=== PATIENT | female | born 2000 | race Caucasian/White ===

== ENCOUNTER 2021-05-14 14:42 | Emergency (ER) | payer SELFPAY ==
[~2021-05-14] VITALS: Ht 165 cm; Wt 68.0 kg
[2021-05-14 14:49] VITALS: BP 135/98
--- NOTE | 2021-05-14 15:19 | ED General ---
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 Source of Information: Patient Exam Limitations: No Limitations History of Present Illness Date Seen by Provider: May 14, 2021 Time Seen by Provider: 15:00 Initial Comments Patient is a 21-year-old female who presents to the emergency room today with a chief complaint of left anterior chest wall discomfort left upper arm and elbow discomfort, left posterior scapular discomfort. Patient states that she "pulled a muscle" about 2 months ago and treated it conservatively. She states it got a little bit better than over the course of the last several days that she has been moving furniture she has had a recurrence of symptoms. Patient has not been taking any medications for the pain. No anti-inflammatories or Tylenol. She denies using ice or warm compresses. Patient states when she moves her left upper arm or pushes or pulls she has extreme discomfort in her chest wall just underneath her left breast. Also in her left shoulder. She describes little numbness without tingling in her left arm. No weakness or loss of function. No rashes or fevers. No significant past medical history. All other review of systems reviewed and negative except as stated. Timing/Duration: 2-3 Days Severity: Moderate Allergies and Home Medications Patient Home Medication List Home Medication List Reviewed: Yes Review of Systems Review of Systems Constitutional: see HPI EENTM: no symptoms reported Respiratory: no symptoms reported Cardiovascular: no symptoms reported Gastrointestinal: no symptoms reported Musculoskeletal: joint pain (Left elbow), muscle pain, muscle cramps Skin: no symptoms reported All Other Systems Reviewed Negative Unless Noted: Yes Past Qjaknaj-Itfmyp-Nfuabs Hx Patient Social History Tobacco Use?: No Substance use?: No Pt feels they are or have been: No Physical Exam Vital Signs Vital Signs - First Documented 05/14/21 14:49 Temp 36.2 Pulse 100 Resp 18 B/P (MAP) 135/98 (110) Pulse Ox 99 Capillary Refill : Less Than 3 Seconds Height, Weight, BMI Height: '" Weight: lbs. oz. kg; 24.00 BMI Method: General Appearance: No Apparent Distress, WD/WN Neck: Normal Inspection Respiratory: No Accessory Muscle Use, No Respiratory Distress Cardiovascular: Normal Peripheral Pulses Extremity: Normal Capillary Refill, Normal Inspection, Normal Range of Motion, Non Tender, Other (Patient has a little tenderness to palpation distal left upper arm volar aspect, no rashes. Tenderness medial left scapula.) Neurologic/Psychiatric: Alert, Oriented x3, No Motor/Sensory Deficits, Normal Mood/Affect, ice sculptor II-XII Norm as Tested, Other (Good strength 5/5 in all muscle groups of the left upper extremity also normal sensation) Skin: Normal Color, Warm/Dry Progress/Results/Core Measures Suspected Sepsis SIRS Temperature: Pulse: 100 Respiratory Rate: 18 Blood Pressure 135 /98 Mean: 110 Results/Orders Vital Signs/I&O 05/14/21 14:49 Temp 36.2 Pulse 100 Resp 18 B/P (MAP) 135/98 (110) Pulse Ox 99 Capillary Refill : Less Than 3 Seconds Blood Pressure Mean: 110 Progress Note : Time: 15:28 Progress Note Patient encouraged to use anti-inflammatories as well as alternate ice and heat patches to the affected areas. She is given good return precautions including if she gets persistent numbness or weakness to the left arm she needs to come back to the emergency room for reevaluation. Patient is comfortable with this plan of care. All questions were sought and answered. Patient is stable for discharge. Departure Impression Primary Impression: Musculoskeletal pain of extremity Disposition: 01 HOME, SELF-CARE Condition: Stable Departure-Patient Inst. Decision time for Depature: 15:17 Referrals: [facility] [place],LOCAL PHYSICIAN (PCP) Primary Care Physician Patient Instructions: Muscle and Bone Pain (DC) Add. Discharge Instructions: Take [id number]-[id number] Aleve, 1 to 2 tablets twice daily for 3 to 5 days. This will help with pain and inflammation. Always take Aleve with food. You can apply ice packs to the sore areas which may also relieve discomfort. Gentle stretching will also help sore muscles. You can also buy cobr-lil-nlkrwft lidocaine patches which will help relieve muscle pain as well. Bppm-mmj-enceldj muscle rubs might be helpful as well. Return to the emergency room for any weakness to your left arm, loss of function, rashes or any other emergent concerning symptoms. LAUREN DAVIES MD May 14, 2021 15:19
== END 2021-05-14 15:22 | disposition home or self-care (01) ==
LOC: ER 14:44
DX: M79.602 Pain in left arm (principal)
CPT/HCPCS: 99281

== ENCOUNTER 2021-06-11 13:56 | Emergency (ER) | payer SELFPAY ==
[~2021-06-11] VITALS: Ht 160 cm; Wt 68.0 kg
[2021-06-11 14:06] VITALS: BP 134/84
[2021-06-11] MEDS ORDERED: IBUPROFEN 600 MG (MOTRIN) TAB PO ONE (14:30)
--- NOTE | 2021-06-11 14:33 | ED Headache ---
General Chief Complaint: Head/Cervical Problems Stated Complaint: MIGRAINE Nursing Triage Note: PT AMB TO TRIAGE WITH COMPLAINT OF HEADACHE FOR A WEEK. STATES HAS HAD EAR PAIN AND BLURRY VISION. STATES TYLENOL HAS NOT HELPED. Source: patient Exam Limitations: no limitations History of Present Illness Date Seen by Provider: Jun 11, 2021 Time Seen by Provider: 14:16 Initial Comments This is a well-appearing 21-year-old female who presented to the ER with complaints of headache behind her left eye and left side of her head. States that she has had a headache for approximately 1 week about the time she had. New since been her scentsy pot. States that yesterday was the only day she did not have a headache and she had turned the scentsy pot off. States that it was turned back on yesterday and she again has a headache. Allergies and Home Medications Allergies Coded Allergies: nitrofurantoin (Verified Allergy, Unknown, 06/11/21) Past Fyelfak-Rewnwn-Wdgbho Hx Patient Social History Tobacco Use?: No Use of E-Cig and/or Vaping dev: No Substance use?: No Alcohol Use?: No Pt feels they are or have been: No Physical Exam Vital Signs Vital Signs - First Documented 06/11/21 14:06 Temp 36.9 Pulse 87 Resp 19 B/P (MAP) 134/84 (101) Pulse Ox 98 O2 Delivery Room Air Capillary Refill : Less Than 3 Seconds Height, Weight, BMI Height: '" Weight: lbs. oz. kg; 26.00 BMI Method: Progress/Results/Core Measures Results/Orders My Orders Orders - RAMSEY LOPEZ APRN Ibuprofen Tablet (Motrin Tablet) (06/11/21 14:30) Vital Signs/I&O 06/11/21 14:06 Temp 36.9 Pulse 87 Resp 19 B/P (MAP) 134/84 (101) Pulse Ox 98 O2 Delivery Room Air Blood Pressure Mean: 101 Departure Impression Primary Impression: Migraine Disposition: 01 HOME, SELF-CARE Condition: Stable Departure-Patient Inst. Decision time for Depature: 14:32 Referrals: NO,LOCAL PHYSICIAN (PCP/Family) Primary Care Physician Patient Instructions: Migraines (DC) Add. Discharge Instructions: Plan: 1. Avoid using scentsy pot to see if this is causing your migraines. 2. May take Tylenol or Ibuprofen as needed for pain per package. 3. If symptoms persist follow up with your primary care provider. 4. Return for any new, concerning, or worsening symptoms. All discharge instructions reviewed with patient and/or family. Voiced understanding. RAMSEY LOPEZ [employer] Jun 11, 2021 14:33
== END 2021-06-11 14:52 | disposition home or self-care (01) ==
LOC: EDUNIT# 13:56 → ER 13:59
DX: G43.909 Migraine, unspecified, not intractable, without status migrainosus (principal)
CPT/HCPCS: 99283

== ENCOUNTER 2021-08-03 23:22 | Emergency (ER) | payer MEDICAID ==
[2021-08-03 23:45] LABS: BASOPHILS # (AUTO) 0.1 10^3/uL (0.0-0.1); BASOPHILS % (AUTO) 0 % (0-10); EOSINOPHILS # (AUTO) 0.1 10^3/uL (0.0-0.3); EOSINOPHILS % (AUTO) 1 % (0-10); HEMATOCRIT 40 % (35-52); HEMOGLOBIN 13.6 g/dL (11.5-16.0); LYMPHOCYTES # (AUTO) 3.6 10^3/uL (1.0-4.0); LYMPHOCYTES % (AUTO) 31 % (12-44); MEAN CORPUSCULAR HEMOGLOBIN 30 pg (25-34); MEAN CORPUSCULAR HGB CONC 34 g/dL (32-36); MEAN CORPUSCULAR VOLUME 88 fL (80-99); MEAN PLATELET VOLUME 11.1 fL (9.0-12.2); MONOCYTES # (AUTO) 0.7 10^3/uL (0.0-1.0); MONOCYTES % (AUTO) 6 % (0-12); NEUTROPHILS % (AUTO) 61 % (42-75); PLATELET COUNT 278 10^3/uL (130-400); WHITE BLOOD COUNT 11.3 10^3/uL (4.3-11.0)
[2021-08-03] MEDS ORDERED: KETOROLAC 30 MG/ML VIAL IVP ONE (23:45)
[2021-08-03 23:47] LABS: BILIRUBIN,URINE NEGATIVE (NEGATIVE); CLARITY,URINE CLEAR; COLOR,URINE YELLOW; GLUCOSE, URINE (UA) NEGATIVE (NEGATIVE); KETONES,URINE NEGATIVE (NEGATIVE); LEUKOCYTE ESTERASE ,URINE NEGATIVE (NEGATIVE); NITRITE,URINE NEGATIVE (NEGATIVE); PROTEIN,URINE 2+ (NEGATIVE)
--- NOTE | 2021-08-03 23:47 | ED Chest Pain ---
General Stated Complaint: CP Source: patient Exam Limitations: no limitations History of Present Illness Date Seen by Provider: Aug 03, 2021 Time Seen by Provider: 23:32 Initial Comments Patient to the ER by private conveyance from home with chief complaint of 3 days of waxing and waning left-sided chest pain worse with touch, movement or turning her neck. She has some tightness in her posterior rib cage around the level of her scapula on the left side. No injuries. No previous history of heart disease, lung disease. She does not smoke have hypertension hyperlipidemia diabetes. She states her mother was in her late 20s and had a heart attack and told her it was because of energy drinks. She herself does not use caffeine but states she does have a lot of anxiety. She does not have any GERD or acid reflux symptoms. She is not having any nausea cough fevers chills or shortness of air presently. She rates it as a 4 out of 10, at worst 8 out of 10. She had Tylenol couple days ago which helped some and some ibuprofen earlier today which did not help much. She says she saw a rash on her left anterior chest but it went away. No personal history of blood clots or familial history of blood clots. No swelling in her legs or extremities. No hemoptysis or coughing. LMP concluded 4 days prior. April 2021 patient presented to the same ER for complaint of pain after pulling a muscle from 2 months prior at the head and waxing and waning and had a recurrence of symptoms after she moved some furniture. Her complaint of pain was described as left anterior chest wall left upper arm and left posterior scapular discomfort in the similar distribution as today's complaint of pain. Allergies and Home Medications Allergies Coded Allergies: nitrofurantoin (Verified Allergy, Unknown, 06/11/21) Patient Home Medication List Home Medication List Reviewed: Yes Cyclobenzaprine HCl (Cyclobenzaprine HCl) 10 Mg Tablet, 10 MG PO Q8H PRN for SPASMS Prescribed by: AVELINO GUERRERO on 08/04/21 0029 Review of Systems Review of Systems Constitutional: No chills, No fever, No malaise EENTM: No Double Vision, No Eye Tearing Respiratory: See HPI; Denies Cough; Shortness of Air Cardiovascular: See HPI, Chest Pain; Denies Lightheadedness Gastrointestinal: Denies Abdominal Pain, Denies Constipated, Denies Diarrhea Genitourinary: Denies Burning, Denies Discharge Musculoskeletal: No back pain, No joint pain Skin: No change in color, No lumps Psychiatric/Neurological: Anxiety; Denies Depressed, Denies Headache, Denies Numbness All Other Systems Reviewed Negative Unless Noted: Yes Past Ltxmsvt-Gozhct-Xgueur Hx Patient Social History Tobacco Use?: No Use of E-Cig and/or Vaping dev: No Substance use?: No Alcohol Use?: No Physical Exam Vital Signs Vital Signs - First Documented 08/03/21 23:31 Temp 36.5 Pulse 96 Resp 20 B/P (MAP) 142/104 (117) Pulse Ox 100 O2 Delivery Room Air Capillary Refill : Height, Weight, BMI Height: '" Weight: lbs. oz. kg; 26.00 BMI Method: General Appearance: WD/WN, Anxious, Mild Distress HEENT: PERRL/EOMI, Pharynx Normal, Moist Mucous Membranes Neck: Full Range of Motion, Normal Inspection Respiratory: No Chest Non Tender; Lungs Clear, Normal Breath Sounds, No Accessory Muscle Use, No Respiratory Distress, Other (Chest wall is exquisitely tender to even light touch in the area of the ribs above the nipple line all the way back through the axilla into the mid scapular line. No rash or erythema.) Cardiovascular: Regular Rate, Rhythm, No Edema, Normal Peripheral Pulses Gastrointestinal: Normal Bowel Sounds, Non Tender, Soft Extremity: Normal Capillary Refill, Normal Inspection, Normal Range of Motion, Non Tender, No Calf Tenderness, No Pedal Edema Neurologic/Psychiatric: Alert, Oriented x3 Skin: Normal Color, Warm/Dry Progress/Results/Core Measures Results/Orders Lab Results Laboratory Tests Test 08/03/21 23:35 08/03/21 23:40 Range/Units White Blood Count 11.3 H 4.3-11.0 10^3/uL Red Blood Count 4.51 3.80-5.11 10^6/uL Hemoglobin 13.6 11.5-16.0 g/dL Hematocrit 40 35-52 % Mean Corpuscular Volume 88 80-99 fL Mean Corpuscular Hemoglobin 30 25-34 pg Mean Corpuscular Hemoglobin Concent 34 32-36 g/dL Red Cell Distribution Width 11.9 10.0-14.5 % Platelet Count 278 130-400 10^3/uL Mean Platelet Volume 11.1 9.0-12.2 fL Immature Granulocyte % (Auto) 0 % Neutrophils (%) (Auto) 61 42-75 % Lymphocytes (%) (Auto) 31 12-44 % Monocytes (%) (Auto) 6 0-12 % Eosinophils (%) (Auto) 1 0-10 % Basophils (%) (Auto) 0 0-10 % Neutrophils # (Auto) 7.0 1.8-7.8 10^3/uL Lymphocytes # (Auto) 3.6 1.0-4.0 10^3/uL Monocytes # (Auto) 0.7 0.0-1.0 10^3/uL Eosinophils # (Auto) 0.1 0.0-0.3 10^3/uL Basophils # (Auto) 0.1 0.0-0.1 10^3/uL Immature Granulocyte # (Auto) 0.0 0.0-0.1 10^3/uL Sodium Level 139 135-145 MMOL/L Potassium Level 3.6 3.6-5.0 MMOL/L Chloride Level 104 98-107 MMOL/L Carbon Dioxide Level 22 21-32 MMOL/L Anion Gap 13 5-14 MMOL/L Blood Urea Nitrogen 9 7-18 MG/DL Creatinine 0.80 0.60-1.30 MG/DL Estimat Glomerular Filtration Rate 91 BUN/Creatinine Ratio 11 Glucose Level 90 70-105 MG/DL Calcium Level 9.4 8.5-10.1 MG/DL Corrected Calcium 9.0 8.5-10.1 MG/DL Total Bilirubin 0.5 0.1-1.0 MG/DL Aspartate Amino Transf (AST/SGOT) 16 5-34 U/L Alanine Aminotransferase (ALT/SGPT) 14 0-55 U/L Alkaline Phosphatase 83 40-136 U/L Troponin I < 0.028 <0.028 NG/ML C-Reactive Protein High Sensitivity 0.03 0.00-0.50 MG/DL Total Protein 7.7 6.4-8.2 GM/DL Albumin 4.5 3.2-4.5 GM/DL Urine Color YELLOW Urine Clarity CLEAR Urine pH 6.0 5-9 Urine Specific [place] >=1.030 1.016-1.022 Urine Protein 2+ H NEGATIVE Urine Glucose (UA) NEGATIVE NEGATIVE Urine Ketones NEGATIVE NEGATIVE Urine Nitrite NEGATIVE NEGATIVE Urine Bilirubin NEGATIVE NEGATIVE Urine Urobilinogen 0.2 < = 1.0 MG/DL Urine Leukocyte Esterase NEGATIVE NEGATIVE Urine RBC (Auto) NEGATIVE NEGATIVE Urine RBC NONE /HPF Urine WBC NONE /HPF Urine Squamous Epithelial Cells 10-25 H /HPF Urine Crystals NONE /LPF Urine Bacteria TRACE /HPF Urine Casts NONE /LPF Urine Mucus LARGE H /LPF Urine Culture Indicated NO My Orders Orders - AVELINO GUERRERO Ekg Tracing (08/03/21 23:30) Continuous Ekg Monitoring (08/03/21 23:30) Ua Culture If Indicated (08/03/21 23:30) Urine Bedside (08/03/21 23:30) Cbc With Automated Diff (08/03/21:40) Comprehensive Metabolic Panel (08/03/21 23:40) Hs C Reactive Protein (08/03/21:40) Troponin I (08/03/21 23:40) Ketorolac Injection (Toradol Injection) (08/03/21 23:45) Chest 1 View, Ap/Pa Only (08/04/21 00:01) Cyclobenzaprine Tablet (Flexeril Tablet) (08/04/21 00:30) Cyclobenzaprine Tablet (Flexeril Tablet) (08/04/21 00:37) Medications Given in ED Vital Signs/I&O 08/03/21 08/04/21 23:31 00:41 Temp 36.5 36.5 Pulse 96 82 Resp 20 18 B/P (MAP) 142/104 (117) 116/83 Pulse Ox 100 100 O2 Delivery Room Air Room Air Progress Progress Note : Time: 23:45 Progress Note Suspect she has chest wall pain perhaps she has pinched nerve in her back and that is causing her pain. The other possibilities would be herpes zoster. She does not have any apparent rash although it would not hurt to put her on acyclovir. We will give her some Toradol and see if that helps her pain. We will check some labs and get a chest x-ray. Well's Score: 0.0 points. Low risk group: 1.3% chance of PE in an ED population. 0 PERC criteria. No need for further workup, as <2% chance of PE. Initial ECG Impression Date: Aug 03, 2021 Initial ECG Impression Time: 23:36 Initial ECG Rate: 87 Initial ECG Rhythm: Normal Sinus Initial ECG Intervals: Normal Initial ECG Impression: Normal Initial ECG Comparisson: No Previous ECG Available Diagnostic Imaging Diagonstic Imaging: Xray Plain Films/CT/US/NM/MRI: chest Comments No acute cardiopulmonary process on 1 view chest x-ray. Reviewed: Reviewed by Me Departure Impression Primary Impression: Chest wall pain Additional Impression: Thoracic radiculopathy Disposition: HOME, SELF-CARE Condition: Stable Departure-Patient Inst. Decision time for Depature: 00:19 Referrals: NO,LOCAL PHYSICIAN (PCP/Family) Primary Care Physician Patient Instructions: Chest Pain That Is Not Caused by the Heart (DC), Radiculopathy Add. Discharge Instructions: I believe you have a pinched nerve along your back that is causing the pain distribution from your shoulder blade to the front of your left chest. This will be aggravated by movement. You can use heating pads, topical creams such as icy hot/Biofreeze etc. or lidocaine patches. Tylenol 1000 mg every 8 hours necessary for pain. Ibuprofen 800 mg every 8 hours necessary for pain. He can follow-up with a chiropractor or you may call physical therapy at [phone] for a no upfront cost evaluation. Follow-up with your primary care doctor for further evaluation if your symptoms are persisting for more than a couple weeks. Cyclobenzaprine 1 tablet every 8 hours as necessary for muscle spasms in your chest wall. Will cause drowsiness. Scripts Cyclobenzaprine HCl (Cyclobenzaprine HCl) 10 Mg Tablet 10 MG PO Q8H PRN for SPASMS, #15 TAB 0 Refills Prov: AVELINO GUERRERO 08/04/21 AVELINO GUERRERO Aug 03, 2021 23:47
[2021-08-03 23:51] LABS: ALBUMIN 4.5 GM/DL (3.2-4.5); CHLORIDE 104 MMOL/L (98-107); POTASSIUM 3.6 MMOL/L (3.6-5.0); SODIUM 139 MMOL/L (135-145)
[2021-08-03 23:52] LABS: CALCIUM 9.4 MG/DL (8.5-10.1)
[2021-08-03 23:53] LABS: BACTERIA,URINE TRACE /HPF
[2021-08-03 23:53] LABS: GLUCOSE 90 MG/DL (70-105); TOTAL PROTEIN 7.7 GM/DL (6.4-8.2)
[2021-08-03 23:54] LABS: CARBON DIOXIDE 22 MMOL/L (21-32)
[2021-08-03 23:55] LABS: BILIRUBIN,TOTAL 0.5 MG/DL (0.1-1.0)
[2021-08-03 23:57] LABS: ALKALINE PHOSPHATASE 83 U/L (40-136); GFR ESTIMATED 91
[2021-08-03 23:58] LABS: BUN/CREATININE RATIO 11
[2021-08-04] LABS: ALANINE AMINOTRANSFERASE 14 U/L (0-55)
[2021-08-04] MEDS ORDERED: CYCL10TA9 PO (00:29)
[2021-08-04] MEDS ORDERED: CYCLOBENZAPRINE 10 MG (FLEXERIL) TAB PO ONE (00:30)
[2021-08-04] MEDS ORDERED: CYCLOBENZAPRINE 10 MG (FLEXERIL) TAB PO STA (00:37)
[2021-08-04 00:41] VITALS: BP 116/83
--- NOTE | 2021-08-06 07:09 | Diagnostic Imaging Report ---
EXAMINATION: Chest radiograph, portable AP view. DATE: 08/06/2021 7:07 AM INDICATION: 21-year-old female, chest pain. COMPARISON: None. FINDINGS: Heart size and mediastinal contours are unremarkable. There is no identified pneumothorax. There is no large pleural effusion. There is no identified focal airspace consolidation. IMPRESSION: No identified acute cardiopulmonary abnormality. Dictated by: Dictated on workstation # [id number]
== END 2021-08-04 00:41 | disposition home or self-care (01) ==
LOC: EDUNIT# 23:22 → ER 23:24
DX: R07.89 Other chest pain (principal); M54.14 Radiculopathy, thoracic region
CPT/HCPCS: 36415; 71045; 80053; 81000; 84484; 84703; 85025; 86141; 93005

== ENCOUNTER 2023-05-11 16:02 | Emergency (ER) | payer SELFPAY ==
[~2023-05-11] VITALS: Ht 160 cm; Wt 70.0 kg
[~2023-05-11 16:02] MED LIST: CYCL10TA25 PO
--- NOTE | 2023-05-11 16:22 | ED EENT ---
History of Present Illness General Chief Complaint: Oral/Throat Problems Stated Complaint: SORE THROAT/ SWOLLEN TONSILS Nursing Triage Note: PT AMB TO ED BY POV WITH C/ SORE THROAT. PT REPORTS SHE THOUGHT THE SORE THROAT WAS RELATED TO ALLERGIES YESTERDAY, BUT PAIN IS MUCH WORSE TODAY. Source: patient Exam Limitations: no limitations History of Present Illness Date Seen by Provider: May 11, 2023 Time Seen by Provider: 16:06 Initial Comments 23-year-old female presents to the ER with complaint of throat pain starting yesterday. She states the pain is gotten worse today. Reports that it hurts all the time, but worse with swallowing. Reports a temperature of 100.2 at home. Denies abdominal pain, nausea, vomiting. Past medical history includes ventricular heart disease, and inappropriate sinus tachycardia. She takes metoprolol. Allergies and Home Medications Allergies Coded Allergies: nitrofurantoin (Verified Allergy, Unknown, 06/11/21) Patient Home Medication List Home Medication List Reviewed: Yes Amoxicillin (Amoxicillin) 500 Mg Tablet, 500 MG PO BID Prescribed by: Natividad Simon on 05/11/23 1654 Cyclobenzaprine HCl (Cyclobenzaprine HCl) 10 Mg Tablet, 10 MG PO Q8H PRN for SPASMS Prescribed by: AVELINO GUERRERO on 08/04/21 0029 Review of Systems Review of Systems Constitutional: see HPI Throat: see HPI Past Pwgmmds-Kjivcd-Qnjefk Hx Patient Social History Tobacco Use?: No Use of E-Cig and/or Vaping dev: Yes E-Cig or Vaping type used: Nicotine Use of E-Cig and/or Vaping Kevin: Current Everyday User Substance use?: No Alcohol Use?: No Pt feels they are or have been: No Immunizations Up To Date Influenza Vaccine Up-to-Date: No; Not Current Past Medical History Surgery/Hospitalization HX: VENTRICULAR HEART DISEASE Physical Exam Vital Signs Vital Signs - First Documented 05/11/23 16:09 Temp 37.8 Pulse 102 Resp 18 B/P (MAP) 118/76 (90) Pulse Ox 99 O2 Delivery Room Air Height, Weight, BMI Height: '" Weight: lbs. oz. kg; 27.00 BMI Method: General Appearance: WD/WN, no apparent distress Mouth/Throat: tonsillar exudate, tonsillar swelling; No uvula swelling, No voice changes; other (Pharyngeal erythema, uvula midline) Neck: supple, normal inspection Cardiovascular: regular rate, rhythm Respiratory: lungs clear, normal breath sounds, no respiratory distress, no accessory muscle use Neurologic/Psychiatric: alert, normal mood/affect Skin: normal color, warm/dry Progress/Results/Core Measures Results/Orders Lab Results Laboratory Tests Test 05/11/23 16:11 Range/Units Group A Streptococcus Screen POSITIVE H NEGATIVE My Orders Orders - NATIVIDAD WEEKS APRN Rapid Strep A Screen (05/11/23 16:06) Amoxicillin Capsule (Amoxicillin Capsule (05/11/23 17:00) Medications Given in ED Current Medications Medications Dose Ordered Sig/Marlin Route Start Time Stop Time Status Last Admin Dose Admin Amoxicillin 500 mg ONCE ONCE PO 05/11/23 17:00 05/11/23 17:01 DC 05/11/23 16:57 500 MG Vital Signs/I&O 05/11/23 05/11/23 16:09 17:01 Temp 37.8 Pulse 102 104 Resp 18 16 B/P (MAP) 118/76 (90) 115/79 Pulse Ox 99 98 O2 Delivery Room Air Room Air Blood Pressure Mean: 90 Progress Progress Note : Progress Note Patient seen and evaluated, resting comfortably in recliner, no acute distress. Based on exam and symptoms, this is likely strep pharyngitis. Rapid strep ordered. I do not think patient has a retropharyngeal abscess, uvula is midline, patient is in no acute distress. 1651 strep positive. I discussed options for treatment with patient. He states she would rather have the prescription and get a shot of penicillin. Will give first dose of antibiotic now and discharged with prescription. Discharge instructions and return precautions provided. Departure Impression Primary Impression: Streptococcal sore throat Disposition: HOME, SELF-CARE Condition: Stable Departure-Patient Inst. Decision time for Depature: 16:51 Referrals: NO,LOCAL PHYSICIAN (PCP/Family) Primary Care Physician Patient Instructions: Strep Throat (DC) Add. Discharge Instructions: Complete full course of antibiotic as prescribed, do not stop taking even if you begin to feel better. Follow-up with primary care provider. Return for inability to swallow, severe shortness of breath, or any other new, concerning, or worsening symptoms. All discharge instructions reviewed with patient and/or family. Voiced understanding. Scripts Amoxicillin (Amoxicillin) 500 Mg Tablet 500 MG PO BID for 10 Days, #19 TAB 0 Refills Prov: NATIVIDAD WEEKS APRN 05/11/23 Work/School Note: Work Release Form Date Seen in the Emergency Department: May 11, 2023 Return to Work: May 14, 2023 Restrictions: No Restrictions NATIVIDAD WEEKS APRN May 11, 2023 16:22
[2023-05-11] MEDS ORDERED: AMOX500T2 PO (16:54)
[2023-05-11] MEDS ORDERED: AMOXICILLIN 500 MG CAPSULE PO ONE (17:00)
[2023-05-11 17:01] VITALS: BP 115/79
== END 2023-05-11 17:01 | disposition home or self-care (01) ==
LOC: EDUNIT# 16:02 → ER 16:06
DX: J02.0 Streptococcal pharyngitis (principal); F17.290 Nicotine dependence, other tobacco product, uncomplicated; Z88.1 Allergy status to other antibiotic agents
CPT/HCPCS: 87430; 99283